=== PATIENT | female | born 1945 | race Caucasian/White ===

== ENCOUNTER → 2016-09-27 | Outpatient (CLI) | payer OTHER ==
[~2016-09-27] MED LIST: HYDROCODONE-AP1 EAC6 PO; IBUPROFEN 400400 M2 PO; NORCO 5-325 TA1 EACH PO; UNICOMPLEX M TA1 TA1 PO
== END ==
LOC: MRI 12:16
DX: R51 Headache (principal); M21.379 Foot drop, unspecified foot

== ENCOUNTER 2017-11-10 12:32 | Emergency (ER) | payer OTHER ==
[~2017-11-10] VITALS: Ht 160 cm; Wt 65.8 kg
[2017-11-10] MEDS ORDERED: MIRALAX17 GM PO (14:22)
[2017-11-10] MEDS ORDERED: HYDROCODONE-AP1 EAC6 PO (14:22)
[2017-11-10 14:33] VITALS: BP 110/72
== END 2017-11-10 14:34 | disposition home or self-care (01) ==
LOC: ER 12:32
DX: S52.92XA Unspecified fracture of left forearm, initial encounter for closed fracture (principal); M25.531 Pain in right wrist; M25.562 Pain in left knee; Z87.891 Personal history of nicotine dependence; Z88.8 Allergy status to other drugs, medicaments and biological substances; W01.0XXA Fall on same level from slipping, tripping and stumbling without subsequent striking against object, initial encounter; Y93.89 Activity, other specified; Y92.89 Other specified places as the place of occurrence of the external cause; Y99.8 Other external cause status

== ENCOUNTER → 2018-01-11 | Outpatient (CLI) | payer OTHER ==
[~2018-01-11] MED LIST changes: +MIRALAX17 GM PO
== END ==
LOC: MRI 07:24
DX: M48.07 Spinal stenosis, lumbosacral region (principal); M48.061 Spinal stenosis, lumbar region without neurogenic claudication